=== PATIENT | female | born 1970 | race Caucasian/White ===

== ENCOUNTER 2022-06-21 11:07 | Emergency (ER) | payer OTHER, SELFPAY ==
[2022-06-21 11:22] VITALS: BP 160/98; PULSE 79; RESP 18; TEMP 36.9; O2SAT 97; BMI 32.5
[2022-06-21 11:42] LABS: Appearance Urine Clear (Clear); Bilirubin Urine Negative (Negative); Blood Urine 3+ (Negative); Color Urine Yellow (Yellow); Glucose Urine Negative (Negative); Ketones Urine Negative (Negative); Leukocyte Esterase Urine Negative (Negative); Nitrite Urine Negative (Negative); Protein Urine 1+ (Negative); Specific Gravity Urine >= 1.030 (1.000-1.030); Urobilinogen Urine 0.2 (0.2-1.0); pH Urine 6.5 (5.0-8.5)
--- NOTE | 2022-06-21 11:50 | CRLHL7_ITS ---
For Patients: As a result of the Century Cures Act, medical imaging exams and procedure reports are released immediately into your electronic medical record. You may view this report before your referring provider. If you have questions, please contact your health care provider. INDICATION: Sudden left flank pain radiating to groin. TECHNIQUE: CT of the abdomen and pelvis without intravenous contrast. Coronal and sagittal reconstructions. COMPARISON: CT of the abdomen and pelvis 03/09/2021. FINDINGS: The unenhanced liver, spleen, pancreas, and adrenal glands are normal in appearance. Cholecystectomy. Stable mild dilation of the common bile duct likely related to post cholecystectomy state. No right hydronephrosis or ureteral dilation. There is a 6.5 mm obstructing stone at the left ureterovesicular junction with moderate upstream left hydronephrosis and perinephric fat stranding (series to image 112). Decompressed urinary bladder. IUD in the uterus. No adnexal mass. Postoperative changes of Celia-en-Y gastric bypass. Resolution of previously seen inflammatory changes of the gastric pouch and Celia limb. There is diffuse wall thickening of the small bowel which could represent a nonspecific enteritis. No bowel dilation. The appendix is distended with gas measuring up to 8 mm in diameter but no surrounding inflammation. No intraperitoneal free air or fluid. No lymphadenopathy. Hemangioma in the T12 vertebral body. The bones are otherwise unremarkable. The lung bases are clear. IMPRESSION: 1. 6.5 mm obstructing stone at the left UVJ with moderate left hydroureteronephrosis. 2. Resolution of previously seen inflammatory changes of the gastric pouch and Celia limb. 3. Diffuse small bowel wall thickening could represent a nonspecific enteritis. Please note that all CT scans at this facility use dose modulation, iterative reconstruction, and/or weight-based dosing when appropriate to reduce radiation dose to as low as reasonably achievable. Dictated by Vickie Rodriguez MD @ 06/21/2022 2:33:05 PM (Electronically Signed)
[2022-06-21 12:02] LABS: RBC Urine 0-2 (0-2)
--- NOTE | 2022-06-21 12:05 | ED_ITS ---
HPI - General Adult General Date Seen: 06/21/22 Chief complaint: Abdominal Pain Stated complaint: Back and abdominal pain Time Seen by Provider: 06/21/22 11:14 Source: patient History of Present Illness HPI narrative: Patient is a 52-year-old woman who presents with sudden onset of left flank pain starting this morning. It radiates to the left groin. She describes it as crampy and moderate to severe in intensity. She has never had pain like this before. It has been associated with nausea and several episodes of vomiting. The pain radiates into her vagina as well when she urinates, but she does not have dysuria. She has not had any fevers or chills. She has not noticed hematuria. She denies chest pain or difficulty breathing, no pleuritic pain. It has been constant since it started, gradually worsening. She has not tried anything for pain, is not supposed to take NSAIDs secondary to previous gastric bypass surgery and history of ulcer. Related Data Home Medications Medication Instructions Recorded Confirmed escitalopram oxalate 20 mg tablet mg 06/21/22 modafinil 200 mg tablet mg 06/21/22 omeprazole 20 mg capsule,delayed mg 06/21/22 release spironolactone 25 mg tablet mg 06/21/22 Previous Rx's Medication Instructions Recorded oxycodone 5 mg tablet 5 mg PO Q6H PRN #20 tab 06/21/22 Allergies Allergy/AdvReac Type Severity Reaction Status Date / Time ibuprofen Allergy Verified 06/21/22 11:21 latek Allergy Uncoded 06/21/22 11:21 [facility] Social History Smoking Status: Never smoker Do you use any of these nicotine containing products: None Second hand tobacco smoke exposure: No How often do you have a drink containing alcohol: never How often do you have six or more drinks on one occasion: Never AUDIT-C Alcohol total score: 0 Non-prescribed substance use: denies use service: No Exam Narrative: Exam Narrative: Vital signs as noted above. In general, an alert, well-appearing patient. She looks uncomfortable. Head: Normocephalic, atraumatic. Eyes: Pupils are equal reactive. Extraocular movements are full. Conjunctivae are normal. ENT: Mucous membranes are moist. Throat is normal. Neck: Supple without lymphadenopathy. Heart: Regular rate and rhythm. No murmur or rub. Lungs: Clear bilaterally. No increased work of breathing, crackles or wheezes. Abdomen: Soft and nontender. No organomegaly. Back: No CVA tenderness. Extremities: Well perfused. No edema. No calf tenderness. Pulses intact. Neurologic: Patient is alert and oriented to person and place. Speech is fluent. Face is symmetric. Moves all extremities equally. Affect: Normal. Skin: Warm and dry. Well perfused. Const: Vital Signs, click to edit/add: Vital Signs - 24 hr 06/21/22 11:22 06/21/22 16:15 Temperature 98.4 F Pulse Rate [Left P ulse Oximeter] 79 89 Respiratory Rate 18 16 Blood Pressure [Ri ght Upper Arm] 160/98 H 136/82 Pulse Oximetry 97 99 Documenting provider has reviewed patient's vital signs: yes Course Course Hospital Course: Following initial evaluation, we obtained a urine sample. This is notable for 3+ blood. An IV is placed, will give her morphine and Zofran, a L of normal saline. CT of the abdomen without contrast is pending, symptoms are strongly suggestive of kidney stone, but other considerations include pyelonephritis, p neumonia, pulmonary embolism, bowel obstruction, diverticulitis, ovarian pathology. She had some pain relief with the morphine but not complete, switched to Dilaudid 0.5 mg IV which improved her pain relief. Nausea was improved with Zofran. No further vomiting. She had her CT scan, which by my review showed a 6 mm stone at the left UVJ with hydronephrosis. Radiology read as follows: IMPRESSION: 1. 6.5 mm obstructing stone at the left UVJ with moderate left hydroureteronephrosis. 2. Resolution of previously seen inflammatory changes of the gastric pouch and Celia limb. 3. Diffuse small bowel wall thickening could represent a nonspecific enteritis. She had an additional dose of Dilaudid. Her UA showed 3+ blood, negative leukocytes. She actually had 10-25 white cells on her urine micro however, is not febrile here not reporting any systemic symptoms of fever chills. Symptoms all started today, she does not have any CVA tenderness. I did give her a g of Rocephin here, will cover with antibiotics. We discussed that if she does develop any symptoms of illness such as fever chills, she should return right away as the stone would need to be removed more emergently. Likewise return for severe uncontrolled pain or uncontrolled vomiting. For now, will discharge home with pain medications and instructions for outpatient Urology follow-up. Push fluids, strain urine, discussed that she will likely need urology follow-up for stone removal as this stone is likely too large to pass its own. Vital Signs Vital signs: Initial Vital Signs Temperature 98.4 F 06/21/22 11:22 Temperature Source Temporal Artery Scan 06/21/22 11:22 Pulse Rate 79 06/21/22 11:22 Respiratory Rate 18 06/21/22 11:22 Blood Pressure 160/98 H 06/21/22 11:22 Blood Pressure Mean 118 06/21/22 11:22 Blood Pressure Position Sitting 06/21/22 11:22 Pulse Oximetry 97 06/21/22 11:22 Oxygen Delivery Method 06/21/22 11:22 Vital Signs Temperature 98.4 F 06/21/22 11:22 Pulse Rate 79 06/21/22 11:22 Respiratory Rate 18 06/21/22 11:22 Blood Pressure 160/98 H 06/21/22 11:22 Pulse Oximetry 97 06/21/22 11:22 Temperature 98.4 F 06/21/22 11:22 Pulse Rate 89 06/21/22 16:15 Respiratory Rate 16 06/21/22 16:15 Blood Pressure 136/82 06/21/22 16:15 Pulse Oximetry 99 06/21/22 16:15 Medical Decision Making Lab Data Labs: Lab Results 06/21/22 Range/Units 11:27 Urine Color Yellow (Yellow) Urine Appearance Clear (Clear) Urine pH 6.5 (5.0-8.5) Ur Specific [place] >= 1.030 (1.000-1.030) Urine Protein 1+ A (Negative) Urine Glucose (UA) Negative (Negative) Urine Ketones Negative (Negative) Urine Blood 3+ A (Negative) Urine Nitrite Negative (Negative) Urine Bilirubin Negative (Negative) Urine Urobilinogen 0.2 (0.2-1.0) Ur Leukocyte Esterase Negative (Negative) Urine RBC 0-2 (0-2) Urine WBC 10-25 A (0-5) Ur Squamous Epith Cells None (None-Few) Urine Bacteria None (None) Discharge Plan Discharge Clinical Impression: Calculus of kidney Patient Disposition: Home, Self-Care Condition: Improved Instructions: Kidney Stones (ED) Additional Instructions: Medications as prescribed. Recommend taking Tylenol 1000 mg 3 times daily as baseline pain control. Push fluids. Strain urine. Return to the ER for severe uncontrolled pain, uncontrolled vomiting, or new symptoms such as fever, chills, or other worsening symptoms. This stone is relatively unlikely to pass on its own. You will likely need urology follow-up. Please call [phone] to make a follow-up appointment. You can tell them that you have a 6-1/2 mm stone at the UVJ on CT scan with moderate hydronephrosis. Prescriptions: New oxycodone 5 mg tablet 5 mg PO Q6H PRN (Reason: pain) Qty: 20 0RF No Action spironolactone 25 mg tablet 0RF Label Comments: TAKE 1 TABLET BY MOUTH DAILY modafinil 200 mg tablet 0RF Label Comments: TAKE 1 TABLET BY MOUTH EVERY DAY IN THE MORNING omeprazole 20 mg capsule,delayed release(DR/EC) 0RF Label Comments: TAKE 1 CAPSULE BY MOUTH TWICE DAILY escitalopram oxalate 20 mg tablet 0RF Follow Up/Referrals: Provider,Not a Local [Primary Care Provider] - Stand Alone Forms: [employer] Info Instructions
[2022-06-21] MEDS: ONDANSETRON 2 MG/ML inj 4 MG IVP (12:31)
[2022-06-21] MEDS: 0.9 % SODIUM CHLORIDE 1000 ml 1,000 ML IV (12:31)
[2022-06-21] MEDS: MORPHINE 4 MG/ML INJ IVP (12:31)
[2022-06-21] MEDS: HYDROmorphone 0.5 mg/0.5 ml inj IVP ×2 (13:29→15:09)
[2022-06-21] MEDS: cefTRIAXone 1 GM in 0.9 % SODIUM CHLORIDE Mini-bag 100 ML IVPB (15:12)
[2022-06-21 16:15] VITALS: BP 136/82; PULSE 89; RESP 16; O2SAT 99
== END 2022-06-21 16:18 | disposition home or self-care (01) ==
PROVIDERS: Emergency Provider Emergency Medicine
DX: N20.0 Calculus of kidney (principal)
CPT/HCPCS: 74176; 81001; 87086; 96365; 96375; 96376; 99284; J0696; J1170; J2270; J2405; J7030